=== PATIENT | male | born 1985 | race Caucasian/White ===

== ENCOUNTER 2021-02-18 17:42 | Emergency (ER) | payer SELFPAY ==
--- NOTE | 2021-02-18 20:19 | EDM.PDOC ---
ED HPI GENERAL MEDICAL PROBLEM - General Chief Complaint: Lower Extremity Injury/Pain Stated Complaint: R FOOT PAIN Time Seen by Provider: 02/18/21 19:47 Source of Information: Reports: Patient, RN Notes Reviewed History Limitations: Reports: No Limitations - History of Present Illness INITIAL COMMENTS - FREE TEXT/NARRATIVE: Patient is a 35-year-old male presenting to the emergency department with complaints of gout to his right great toe. Reports a history of recurrent gout for which he normally uses colchicine. He had a flareup a few weeks back and used up the remainder of his colchicine. He is not from the area so he has been unable to get a refill. About 3 days ago, his gout symptoms began to recur. States this is a typical gout flare for him. Denies any fever or chills. Right Foot Pain Score (Numeric/FACES): 8 - Related Data Allergies Allergy/AdvReac Type Severity Reaction Status Date / Time aspirin Allergy Severe Rash Verified 02/18/21 18:51 Home Meds: Home Meds Colchicine 0.6 mg PO ASDIRECTED 02/18/21 [History] Colchicine 0.6 mg PO ASDIRECTED #30 capsule 02/18/21 [Rx] Past Medical History Musculoskeletal History: Reports: Gout Endocrine/Metabolic History: Reports: Obesity/BMI 30+ - Infectious Disease History Infectious Disease History: Reports: Novel Coronavirus - Past Surgical History Neurological Surgical History: Reports: Lumbar Spine Social & Family History - Tobacco Use Tobacco Use Status *Q: Never Tobacco User - Caffeine Use Caffeine Use: Reports: Energy Drinks - Recreational Drug Use Recreational Drug Use: No Review of Systems - Review of Systems Review Of Systems: Comprehensive ROS is negative, except as noted in HPI. ED EXAM, GENERAL - Physical Exam Exam: See Below Exam Limited By: No Limitations General Appearance: Alert, WD/WN, No Apparent Distress Respiratory/Chest: No Respiratory Distress, Lungs Clear, Normal Breath Sounds, No Accessory Muscle Use, Chest Non-Tender Cardiovascular: Normal Peripheral Pulses, Regular Rate, Rhythm, No Edema, No Gallop, No JVD, No Murmur, No Rub Extremities: Other (redness, warmth, and mild swelling to right great toe) Course - Vital Signs Last Recorded V/S: Last Vital Signs Temp 97 F 02/18/21 18:48 Pulse 79 02/18/21 18:48 Resp 18 02/18/21 18:48 BP 149/102 H 02/18/21 18:48 Pulse Ox 97 02/18/21 18:48 Departure - Departure Time of Disposition: 20:17 Disposition: Home, Self-Care 01 Condition: Good Clinical Impression: Gout Qualifiers: Gout site: toe Gout etiology: unspecified cause Chronicity: acute Laterality: right Qualified Code(s): M10.9 - Gout, unspecified - Discharge Information *PRESCRIPTION DRUG MONITORING PROGRAM REVIEWED*: No *COPY OF PRESCRIPTION DRUG MONITORING REPORT IN PATIENT [place]: No Prescriptions: Colchicine 0.6 mg PO ASDIRECTED #30 capsule Instructions: Gout, [id number] Referrals: PCP,None [Primary Care Provider] - Forms: ED Department Discharge Additional Instructions: You were seen in the emergency department today for a gout flare. Prescription for colchicine has been sent to [facility] [employer]. Take the medication as prescribed. If you experience any worsening symptoms, please not hesitate to return to the emergency department for reevaluation. Sepsis Event Note (ED) - Evaluation Sepsis Screening Result: No Definite Risk
== END 2021-02-18 20:25 | disposition home or self-care (01) ==
LOC: JD.ED 17:42
DX: M10.9 Gout, unspecified (principal); E66.9 Obesity, unspecified; Z68.42 Body mass index [BMI] 45.0-49.9, adult; Z88.8 Allergy status to other drugs, medicaments and biological substances
CPT/HCPCS: 99283